=== PATIENT | female | born 1995 | race Caucasian/White ===

== ENCOUNTER 2018-01-05 09:14 | Emergency (ER) | payer OTHER ==
[~2018-01-05] VITALS: Ht 144.8 cm; Wt 54.4 kg
[2018-01-05] MEDS ORDERED: BACTRIM DS TAB1 EACH PO (11:13)
== END 2018-01-05 14:02 | disposition home or self-care (01) ==
LOC: ER 09:14
DX: R11.0 Nausea (principal); N39.0 Urinary tract infection, site not specified